=== PATIENT | male | born 1945 | race Caucasian/White ===

== ENCOUNTER 2018-07-26 00:37 | Observation (INO) ==
[2018-07-26] MEDS ORDERED: Aspirin 325 MG Tablet PO ONE (00:59)
[2018-07-26 01:19] LABS: Baso # (Auto) 0.4 th/mm3 (0.0-0.2); Baso % (Auto) 4.9 % (0.0-2.0); Eos # (Auto) 0.5 th/mm3 (0.0-0.4); Eos % (Auto) 6.2 % (0.0-4.0); Hemoglobin 12.9 gm/dL (13.0-17.0); Lymph # (Auto) 1.5 th/mm3 (1.0-4.8); Lymph % (Auto) 19.2 % (9.0-44.0); Mean Corpuscular HGB Conc 33.9 % (32.0-36.0); Mean Corpuscular Hemoglobin 29.1 pg (27.0-34.0); Mean Corpuscular Volume 85.7 fL (80.0-100.0); Mean Platelet Volume 8.8 fL (7.0-11.0); Mono # (Auto) 0.6 th/mm3 (0.0-0.9); Mono % (Auto) 7.4 % (0.0-8.0); Neut # (Auto) 4.8 th/mm3 (1.8-7.7); Neut % (Auto) 62.3 % (16.0-70.0); Platelet Count 210 th/mm3 (150-450); Red Blood Count 4.44 mil/mm3 (4.50-5.90); Red Cell Distribution Width 15.8 % (11.6-17.2); White Blood Count 7.7 th/mm3 (4.0-11.0)
--- NOTE | 2018-07-26 01:24 | ED ---
HPI General Chief Complaint: Chest Pain Stated Complaint: Chest pain Time Seen by Provider: 07/26/18 00:59 History of Present Illness HPI narrative: This is a 72-year-old male with history of diabetes mellitus, coronary disease, congestive heart failure, who presents today with complaints of chest pain times 2 hours. Patient reports that sharp in the middle of his chest. He states it has been constant. He states that he does not take chances when he gets chest pain and came here to be evaluated. The patient has not been seen or evaluated here in the past. He states he moved here last Sunday from [place] to be near his son. He does state that he was once on Plavix however is not taking his Plavix since moving here secondary to him not being able to find it and is packing material. He does report taking his insulin as prescribed. He is unsure whether he takes an aspirin or not. There is associated shortness of breath. There is associated nausea. There is no diaphoresis. He states he was admitted about a year ago possibly almost 2 years ago for a myocardial infarction. He states at that time he had an ejection fraction that was warm third of the normal. Related Data Home Medications Medication Instructions Recorded Confirmed aspirin [Aspir-Low] 81 mg PO DAILY 07/26/18 07/26/18 insulin asp prt-insulin aspart 32 unit SUBCUT DAILY 07/26/18 07/26/18 [Novolog Mix 70-30 U-100 Insuln] trazodone 50 mg PO HS 07/26/18 07/26/18 Allergies Allergy/AdvReac Type Severity Reaction Status Date / Time No Known Allergies Allergy Verified 07/26/18 00:40 Review of Systems ROS: all other systems reviewed are negative Constitutional Denies chills and Denies fever(s) Eyes Reports system reviewed and no additional complaints, except as docu ENT Reports system reviewed and no additional complaints, except as docu Cardiovascular Reports chest pain, Denies diaphoresis, Denies edema and Reports dyspnea Respiratory Denies chest congestion, Denies cough and Reports dyspnea Gastrointestinal Denies abdominal pain, Reports nausea and Denies vomiting Genitourinary Denies dysuria, Denies urinary frequency and Denies urinary urgency Musculoskeletal Reports system reviewed and no additional complaints, except as [facility] Neurologic Reports system reviewed and no additional complaints, except as [facility] Medical History Medical History Congestive heart failure (Acute) History of [place] (myocardial infarction) (Acute) Hypertension (Acute) Surgical History Surgical History History of back surgery (Acute) History of coronary artery stent placement (Acute) History of quadruple bypass (Acute) Social History Social History Substance History: No History of Abuse Smoking Status: Never smoker How Often Do You Have a Drink Containing Alcohol: Never Recent Travel in [facility] within the Last 8 Weeks: No Recent Out of Country Travel within the Last 8 Weeks: No Immunization History Tetanus Immunization: Unsure Exam Narrative Exam Narrative: GENERAL: Well-developed well-nourished male in no acute respiratory distress. Patient does appear to be somewhat anxious. SKIN: Focused skin assessment warm/dry. HEAD: Atraumatic. Normocephalic. EYES: No scleral icterus. No injection or drainage. ENT: No nasal bleeding or discharge. Mucous membranes pink and moist. NECK: Trachea midline. Supple. CARDIOVASCULAR: Regular rate and rhythm. 2/6 systolic murmur heard at the left sternal border. RESPIRATORY: No accessory muscle use. Clear to auscultation. Breath sounds equal bilaterally. GASTROINTESTINAL: Abdomen soft, non-tender, nondistended. No rebound or guarding. MUSCULOSKELETAL: No obvious deformities. No clubbing. No cyanosis. No edema. NEUROLOGICAL: Awake and alert. No obvious cranial nerve deficits. Motor grossly within normal limits. Normal speech. Course Initial Documented Vital Signs Temperature 97.5 F L 07/26/18 00:40 Pulse Rate 77 07/26/18 00:40 Respiratory Rate 18 07/26/18 00:40 Blood Pressure 129/61 07/26/18 00:40 Pulse Oximetry 99 07/26/18 00:40 Last Documented Vital Signs Temperature 97.5 F L 07/26/18 00:40 Pulse Rate 72 07/26/18 00:49 Respiratory Rate 20 07/26/18 00:49 Blood Pressure 119/65 07/26/18 00:49 Pulse Oximetry 100 07/26/18 00:49 Medical Decision Making Differential Diagnosis Differential Diagnosis: ACS versus GERD versus muscular skeletal pain Lab Data Result diagrams: 07/26/18 01:08 07/26/18 01:08 Lab Results 07/26/18 07/26/18 07/26/18 Range/Units 00:58 01:08 01:08 WBC 7.7 (4.0-11.0) th/mm3 RBC 4.44 L (4.50-5.90) mil/mm3 Hgb 12.9 L (13.0-17.0) gm/dL Hct 38.0 L (39.0-51.0) % MCV 85.7 (80.0-100.0) fL MCH 29.1 (27.0-34.0) pg MCHC 33.9 (32.0-36.0) % RDW 15.8 (11.6-17.2) % Plt Count 210 (150-450) th/mm3 MPV 8.8 (7.0-11.0) fL Prelim Diff (Auto) Slide review pending Neut % (Auto) 62.3 (16.0-70.0) % Lymph % (Auto) 19.2 (9.0-44.0) % [place] % (Auto) 7.4 (0.0-8.0) % Eos % (Auto) 6.2 H (0.0-4.0) % Baso % (Auto) 4.9 H (0.0-2.0) % Neut # (Auto) 4.8 (1.8-7.7) th/mm3 Lymph # (Auto) 1.5 (1.0-4.8) th/mm3 [place] # (Auto) 0.6 (0.0-0.9) th/mm3 Eos # (Auto) 0.5 H (0.0-0.4) th/mm3 Baso # (Auto) 0.4 H (0.0-0.2) th/mm3 WBC Differential Manual diff final Seg Neuts % (Manual) 47 (16-70) % Band Neuts % (Manual) 6 (0-6) % Lymphocytes % (Manual) 31 (9-44) % Monocytes % (Manual) 12 H (0-8) % Eosinophils % (Manual) 3 (0-4) % Basophils % (Manual) 1 (0-2) % Abs Neuts (Manual) 4.1 (1.8-7.7) th/mm3 Differential Comment . Platelet Estimate Normal (Normal) Platelet Morphology Normal (Normal) Sodium 137 (136-145) meq/L Potassium 3.1 L (3.5-5.1) meq/L Chloride 96 L (98-107) meq/L Carbon Dioxide 33.9 H (21.0-32.0) meq/L Anion Gap 7 (5-15) meq/L BUN 28 H (7-18) mg/dL Creatinine 2.10 H (0.60-1.30) mg/dL Estimated GFR 31 L (>89) mL/min POC Glucose 168 H (68-110) mg/dl Random Glucose 168 H (74-106) mg/dL Calcium 9.8 (8.5-10.1) mg/dL Total Bilirubin 0.6 (0.2-1.0) mg/dL AST 16 (15-37) U/L ALT 15 (12-78) U/L Alkaline Phosphatase 93 (45-117) U/L Total Creatine Kinase (39-308) U/L Troponin I Less than 0.02 L (0.02-0.05) ng/mL Total Protein 7.7 (6.4-8.2) g/dL Albumin 3.4 (3.4-5.0) g/dL 07/26/18 Range/Units 01:08 WBC (4.0-11.0) th/mm3 RBC (4.50-5.90) mil/mm3 Hgb (13.0-17.0) gm/dL Hct (39.0-51.0) % MCV (80.0-100.0) fL MCH (27.0-34.0) pg MCHC (32.0-36.0) % RDW (11.6-17.2) % Plt Count (150-450) th/mm3 MPV (7.0-11.0) fL Prelim Diff (Auto) Neut % (Auto) (16.0-70.0) % Lymph % (Auto) (9.0-44.0) % [place] % (Auto) (0.0-8.0) % Eos % (Auto) (0.0-4.0) % Baso % (Auto) (0.0-2.0) % Neut # (Auto) (1.8-7.7) th/mm3 Lymph # (Auto) (1.0-4.8) th/mm3 [place] # (Auto) (0.0-0.9) th/mm3 Eos # (Auto) (0.0-0.4) th/mm3 Baso # (Auto) (0.0-0.2) th/mm3 WBC Differential Seg Neuts % (Manual) (16-70) % Band Neuts % (Manual) (0-6) % Lymphocytes % (Manual) (9-44) % Monocytes % (Manual) (0-8) % Eosinophils % (Manual) (0-4) % Basophils % (Manual) (0-2) % Abs Neuts (Manual) (1.8-7.7) th/mm3 Differential Comment Platelet Estimate (Normal) Platelet Morphology (Normal) Sodium (136-145) meq/L Potassium (3.5-5.1) meq/L Chloride (98-107) meq/L Carbon Dioxide (21.0-32.0) meq/L Anion Gap (5-15) meq/L BUN (7-18) mg/dL Creatinine (0.60-1.30) mg/dL Estimated GFR (>89) mL/min POC Glucose (68-110) mg/dl Random Glucose (74-106) mg/dL Calcium (8.5-10.1) mg/dL Total Bilirubin (0.2-1.0) mg/dL AST (15-37) U/L ALT (12-78) U/L Alkaline Phosphatase (45-117) U/L Total Creatine Kinase 49 (39-308) U/L Troponin I (0.02-0.05) ng/mL Total Protein (6.4-8.2) g/dL Albumin (3.4-5.0) g/dL Imaging Data Radiologist's impression: Chest X-Ray 07/26/18 00:59 CONCLUSION: Cardiomegaly. There is blunting of the left lateral costophrenic angle. Discharge Plan Discharge Disposition Patient Disposition: ED Admit(ED Internal Use Only) Discharge Order Discharge Orders: ED Use Only Admit Order (Routine); Ordered 07/26/18 Ordered By: Adrian Cordova Discharge Details Diagnosis: Chest pain, Coronary artery disease, Cardiomyopathy Physicians Team ED Provider: Adrian Cordova Primary Care Provider: Primary Care Nell Metzger Attending Provider: Dusty Pollock Discharge Interventions Interventions: Vital Signs Last Done: 07/26/18 00:49 Status ED Status: Admitted Observation Patient
[2018-07-26 01:40] LABS: Alanine Aminotransferase 15 U/L (12-78); Albumin 3.4 g/dL (3.4-5.0); Anion Gap 7 meq/L (5-15); Aspartate Aminotransferase 16 U/L (15-37); Blood Urea Nitrogen 28 mg/dL (7-18); Calcium 9.8 mg/dL (8.5-10.1); Carbon Dioxide 33.9 meq/L (21.0-32.0); Chloride 96 meq/L (98-107); Glomerular Filtration Rate 31 mL/min (>89); Glucose,Random 168 mg/dL (74-106); Potassium 3.1 meq/L (3.5-5.1); Sodium 137 meq/L (136-145)
[2018-07-26 01:44] LABS: Alkaline Phosphatase 93 U/L (45-117); Total Protein 7.7 g/dL (6.4-8.2)
[2018-07-26 01:46] LABS: Eosinophils 3 % (0-4); Lymphocytes 31 % (9-44); Monocytes 12 % (0-8)
[2018-07-26 01:47] LABS: Platelet Estimate Normal (Normal); Platelet Morphology Normal (Normal)
--- NOTE | 2018-07-26 01:48 | XR ---
EXAM DATE: 07/26/2018 1:17 AM EST AGE/SEX: 72 years / Male INDICATIONS: Chest pain for one hour before coming to ER. CLINICAL DATA: This is the patient's initial encounter. Patient reports that signs and symptoms have been present for 1 day and indicates a pain score of 9/10. MEDICAL/SURGICAL HISTORY: Myocardial infarction. Congestive heart failure. CABG. Cardiac stent placements. COMPARISON: No prior exams available for comparison. FINDINGS: Cardiomegaly and median sternotomy wires. Blunting of the left lateral costophrenic angle. No consoli dation. CONCLUSION: Cardiomegaly. There is blunting of the left lateral costophrenic angle. Electronically signed by: Dk Lo MD 07/26/2018 1:46 AM EST
[2018-07-26 04:13] VITALS: RESP 18
[2018-07-26 04:55] LABS: Creatine Kinase 38 U/L (39-308)
[2018-07-26 08:04] LABS: Creatine Kinase 36 U/L (39-308)
[2018-07-26] MEDS ORDERED: Acetaminophen 500 MG Tablet PO PRN (11:56)
--- NOTE | 2018-07-26 11:56 | P.HPCA ---
History of Present Illness Primary Care Physician: No Primary Care Physician Chief Complaint: Chest pain History of Present Illness: This is a 72-year-old male with history of CAD status post CABG as well as stent , congestive heart failure, chronic kidney disease, diabetes, hypertension, hyperlipidemia that presents to ED to be evaluated for chest discomfort. Patient states that his last heart catheterization was about a year ago at which time he had a long stent placed. He was discharged on medications that he states he was unable to afford. He returned about a week later having another VA and was told that the stent probably had clotted up and he wanted another heart catheterization. He declined a heart catheterization. He also states that he was told that he needs to have a defibrillator secondary to his decreased heart function. States that he was told that his heart function is around 30%. States he has been getting sharp and achy discomfort in his chest that can last up to 2 hours. He can become short of breath. Denies nausea or diaphoresis. States he has been admitted to hospital in [place] several times over the past 6 months. States he has had stress testing somewhat recently. Patient states that he does not smoke, drink alcohol, or use illicit drugs. CAD status post CABG as well as stent. Congestive heart failure. Diabetes, hypertension, hyperlipidemia. There is family history of CAD. - Diagnosis (1) Chest pain (2) Coronary artery disease (3) History of coronary artery bypass graft (4) History of heart artery stent (5) Hypertension (6) Hyperlipidemia (7) Diabetes (8) Cardiomyopathy (9) Chronic kidney disease PMFSH - History History Provided By: Patient - Medical History Medical History: Medical History (Last Updated 07/26/18 @ 00:43 by Judy Kellogg RN) Congestive heart failure History of VA (myocardial infarction) Hypertension - Surgical History Surgical History: Surgical History (Last Updated 07/26/18 @ 00:43 by Judy Kellogg RN) History of back surgery History of coronary artery stent placement History of quadruple bypass - Tobacco History Second Hand Smoke Exposure: No Smoking Status: Never smoker - Alcohol History How Often Do You Have a Drink Containing Alcohol: Never - Substance Use History Substance History: No History of Abuse - Travel History Recent Travel in the [place] Within the Last 8 Weeks: No Recent Travel Out of the Country Within the Last 8 Weeks: No - Immunization History Tetanus Immunization: Unsure Medications and Allergies Active Medications: Active Medications Sodium Chloride (Ns Flush) 2 ml IV.FLUSH UNSCH PRN PRN Reason: FLUSH AFTER USING IV ACCESS Sodium Chloride (Ns Flush) 2 ml IV.FLUSH BID LUCILA Last Admin: 07/26/18 09:29 Dose: 2 ml Sodium Chloride (Ns Flush) 2 ml IV.FLUSH PRN PRN PRN Reason: FLUSH AFTER USING IV ACCESS Allergies Allergy/AdvReac Type Severity Reaction Status Date / Time No Known Allergies Allergy Verified 07/26/18 00:40 Home Medications Medication Instructions Recorded Confirmed Type aspirin [Aspir-Low] 81 mg PO DAILY 07/26/18 07/26/18 History insulin asp prt-insulin aspart 32 unit SUBCUT DAILY 07/26/18 07/26/18 History [Novolog Mix 70-30 U-100 Insuln] trazodone 50 mg PO HS 07/26/18 07/26/18 History Exam Vital signs: Vital Signs 07/26/18 00:40 07/26/18 00:49 07/26/18 01:00 Temperature 97.5 F L Pulse Rate 77 72 Respiratory Rate 18 20 Blood Pressure 129/61 119/65 Pulse Oximetry 99 100 99 07/26/18 02:00 07/26/18 03:45 07/26/18 04:00 Temperature Pulse Rate 67 66 Respiratory Rate 18 18 Blood Pressure 127/68 141/72 H Pulse Oximetry 100 98 98 07/26/18 07:18 Temperature 97.5 F L Pulse Rate 64 Respiratory Rate 18 Blood Pressure 142/69 H Pulse Oximetry 98 Intake & Output 07/25/18 07/26/18 07/26/18 18:59 06:59 18:59 Weight 71.214 kg Other: Weight On Admission 71.214 kg Narrative: GENERAL: This is a well-nourished, well-developed patient, in no apparent distress. Patient speaks in clear complete sentences. Patient is pleasant. HEENT: Head is atraumatic and normocephalic. Neck is supple without lymphadenopathy and trachea is midline. No JVD or carotid bruits. CARDIOVASCULAR: Regular rate and rhythm without murmurs, gallops, or rubs. RESPIRATORY: Clear to auscultation. Breath sounds equal bilaterally. No wheezes , rales, or rhonchi. Chest wall is nontender. No use of accessory muscles. GASTROINTESTINAL: Abdomen is nontender, nondistended. Abdomen soft. No obvious pulsatile mass or bruit. No CVA tenderness. Strong femoral pulses bilaterally. Normal bowel sounds in all quadrants. MUSCULOSKELETAL: Patient is moving upper and lower extremities freely. No calf tenderness or edema, no Homans sign. Strong pulses in upper and lower extremities. NEUROLOGICAL: Patient is alert and oriented. Cranial nerves 2-12 are grossly intact. No focal deficits and speech is clear. SKIN: No rash and turgor is normal. Results 07/26/18 01:08 07/26/18 01:08 Cardiac Enzymes 07/26/18 07/26/18 07/26/18 Range/Units 01:08 04:00 07:11 AST 16 (15-37) U/L Troponin I Less than 0.02 L Less than 0.02 L Less than 0.02 L (0.02-0.05) ng/mL CBC 07/26/18 Range/Units 01:08 WBC 7.7 (4.0-11.0) th/mm3 RBC 4.44 L (4.50-5.90) mil/mm3 Hgb 12.9 L (13.0-17.0) gm/dL Hct 38.0 L (39.0-51.0) % Plt Count 210 (150-450) th/mm3 Neut # (Auto) 4.8 (1.8-7.7) th/mm3 Lymph # (Auto) 1.5 (1.0-4.8) th/mm3 [place] # (Auto) 0.6 (0.0-0.9) th/mm3 Eos # (Auto) 0.5 H (0.0-0.4) th/mm3 Baso # (Auto) 0.4 H (0.0-0.2) th/mm3 Comprehensive Metabolic Panel 07/26/18 Range/Units 01:08 Sodium 137 (136-145) meq/L Potassium 3.1 L (3.5-5.1) meq/L Chloride 96 L (98-107) meq/L Carbon Dioxide 33.9 H (21.0-32.0) meq/L BUN 28 H (7-18) mg/dL Creatinine 2.10 H (0.60-1.30) mg/dL Calcium 9.8 (8.5-10.1) mg/dL AST 16 (15-37) U/L ALT 15 (12-78) U/L Alkaline Phosphatase 93 (45-117) U/L Total Protein 7.7 (6.4-8.2) g/dL Albumin 3.4 (3.4-5.0) g/dL Intake and Output 07/25/18 07/26/18 07/26/18 22:59 06:59 14:59 Other: Weight 71.214 kg Weight On Admission 71.214 kg - Imaging and Cardiology Imaging: Impressions Chest X-Ray 07/26/18 00:59 CONCLUSION: Cardiomegaly. There is blunting of the left lateral costophrenic angle. EKG interpretations - EKG EKG shows: sinus rhythm (EKGs are sinus rhythm with ST-T T changes.) Caprini VTE Risk Assessment Caprini VTE Risk Assessment: Moderate/High Risk (score >= 2) Caprini Risk Assessment Model: Point Value = 1 Point Value = 2 Point Value = 3 Point Value = 5 Age 41-60 Minor surgery BMI > 25 kg/m2 Swollen legs Varicose veins or History of unexplained or recurrent spontaneous Oral contraceptives or hormone replacement Sepsis (< 1 month) Serious lung disease, including pneumonia (< 1 month) Abnormal pulmonary function Acute myocardial infarction Congestive heart failure (< 1 month) History of inflammatory bowel disease Medical patient at bed rest Age 61-74 Arthroscopic surgery Major open surgery (> 45 min) Laparoscopic surgery (> 45 min) Malignancy Confined to bed (> 72 hours) Immobilizing plaster cast Central venous access Age >= 75 History of VTE Family history of VTE Factor V Leiden Prothrombin [id number] Lupus anticoagulant Anticardiolipin antibodies Elevated serum homocysteine Heparin-induced thrombocytopenia Other congenital or acquired thrombophilia Stroke (< 1 month) Elective arthroplasty Hip, pelvis, or leg fracture Acute spinal cord injury (< 1 month) Prophylaxis Regimen: Total Risk Factor Score Risk Level Prophylaxis Regimen 0-1 Low Early ambulation 2 Moderate Order ONE of the following: *Sequential Compression Device (SCD) *Heparin 5000 units SQ BID 3-4 Higher Order ONE of the following medications: *Heparin 5000 units SQ TID *Enoxaparin/Lovenox 40 mg SQ daily (WT < 150 kg, CrCl > 30 mL/min) *Enoxaparin/Lovenox 30 mg SQ daily (WT < 150 kg, CrCl > 10-29 mL/min) *Enoxaparin/Lovenox 30 mg SQ BID (WT < 150 kg, CrCl > 30 mL/min) AND/OR *Sequential Compression Device (SCD) 5 or more Highest Order ONE of the following medications: *Heparin 5000 units SQ TID (Preferred with Epidurals) *Enoxaparin/Lovenox 40 mg SQ daily (WT < 150 kg, CrCl > 30 mL/min) *Enoxaparin/Lovenox 30 mg SQ daily (WT < 150 kg, CrCl > 10-29 mL/min) *Enoxaparin/Lovenox 30 mg SQ BID (WT < 150 kg, CrCl > 30 mL/min) AND *Sequential Compression Device (SCD) Assessment and Plan - Assessment (1) Chest pain Code(s): R07.9 - Chest pain, unspecified Status: Acute (2) Coronary artery disease Code(s): I25.10 - Atherosclerotic heart disease of [place] coronary artery without angina pectoris Status: Acute (3) History of coronary artery bypass graft Code(s): Z95.1 - Presence of aortocoronary bypass graft Status: Acute (4) History of heart artery stent Code(s): Z95.5 - Presence of coronary angioplasty implant and graft Status: Acute (5) Hypertension Code(s): I10 - Essential (primary) hypertension Status: Acute (6) Hyperlipidemia Code(s): E78.5 - Hyperlipidemia, unspecified Status: Acute (7) Diabetes Code(s): E11.9 - Type 2 diabetes mellitus without complications Status: Acute (8) Cardiomyopathy Code(s): I42.9 - Cardiomyopathy, unspecified Status: Acute (9) Chronic kidney disease Code(s): N18.9 - Chronic kidney disease, unspecified Status: Acute - Plan * Chest pain: Patient has had serial cardiac enzymes and EKGs for ruling out purposes. He was seen by Dr. Caesar Garcia of cardiology and the chest pain center. Dr. Garcia did discuss with the patient options including heart catheterization. Patient states that he would not be opposed to heart catheterization if need to be at this time. The patient and his son states that he is a DNR. We are waiting list of his medications to be brought in from his home. * CAD: Patient has history of stent and bypass. Further plan pending records to be obtained. * Chronic kidney disease: Patient need follow-up with a photographic aide and his PCP. * Diabetes: Sliding scale insulin coverage while in chest pain center. Diabetic diet otherwise. Resume medication at discharge. * Cardiomyopathy: Patient states that his heart function was approximately 30%. We will await records. He will need follow-up with lead instructor/flight attendant. * Hypertension: Continue medication. * Hyperlipidemia: Continue medication. Patient is stable at this time. He is agreeable to this plan. H&P: Quality - VTE Deep Vein Thrombosis/Pulmonary Embolism Present on Admission: No
[2018-07-26] MEDS ORDERED: Insulin NovoLIN Regular Correctional Sugar Inj SQ SCH (12:00)
[2018-07-26 12:44] VITALS: BP 120/68; PULSE 74; TEMP 98.3; O2SAT 97
--- NOTE | 2018-07-26 14:42 | ECG ---
Date Performed: 07/26/2018 Time Performed: 04:05:45 PTAGE: 72 years EKG: Sinus rhythm ST DEVIATION AND MODERATE T-WAVE ABNORMALITY, CONSIDER ANTEROLATERAL ISCHEMIA ABNORMAL ECG PREVIOUS TRACING : 07/26/2018 00.50 Since previous tracing, no significant change noted DOCTOR: Caesar Garcia Interpretating Date/Time 07/26/2018 14:40:46
--- NOTE | 2018-07-26 14:44 | ECG ---
Date Performed: 07/26/2018 Time Performed: 00:50:28 PTAGE: 72 years EKG: Sinus rhythm WITH FIRST DEGREE AV BLOCK WITH OCCASIONAL SUPRAVENTRICULAR PREMATURE COMPLEXES ST DEVIATION AND MOD ERATE T-WAVE ABNORMALITY, CONSIDER LATERAL ISCHEMIA ST DEVIATION AND MODERATE T-WAVE ABNORMALITY, CON JIRA DEVELOPER INFERIOR ISCHEMIA ABNORMAL ECG NO PREVIOUS TRACING DOCTOR: Caesar Garcia Interpretating Date/Time 07/26/2018 14:42:30
[2018-07-27] MEDS ORDERED: Aspirin 325 MG Tablet PO SCH (09:00)
== END 2018-07-26 14:27 | disposition home or self-care (01) ==
LOC: NEPC 00:37 → NEDA 00:37 → NEPFCDU 04:30
PROVIDERS: ADMIT Internal Medicine Interventional Cardiology; ATTEND Internal Medicine Interventional Cardiology
DX: R01.1 Cardiac murmur, unspecified; I13.0 Hypertensive heart and chronic kidney disease with heart failure and stage 1 through stage 4 chronic kidney disease, or unspecified chronic kidney disease; Z79.4 Long term (current) use of insulin; I25.2 Old myocardial infarction; E78.5 Hyperlipidemia, unspecified; R94.31 Abnormal electrocardiogram [ECG] [EKG]; I42.9 Cardiomyopathy, unspecified; Z82.49 Family history of ischemic heart disease and other diseases of the circulatory system; Z95.1 Presence of aortocoronary bypass graft; Z95.5 Presence of coronary angioplasty implant and graft; I25.10 Atherosclerotic heart disease of native coronary artery without angina pectoris; E11.22 Type 2 diabetes mellitus with diabetic chronic kidney disease; Z79.82 Long term (current) use of aspirin; R07.89 Other chest pain; N18.9 Chronic kidney disease, unspecified; I50.9 Heart failure, unspecified